=== PATIENT | female | born 1935 | race Caucasian/White ===

== ENCOUNTER 2016-12-04 12:42 | Emergency (ER) | payer BC ==
[~2016-12-04] VITALS: Ht 152.4 cm; Wt 60.2 kg
[2016-12-04 12:49] VITALS: TEMP 36.7; Ht 152.4 cm; Wt 60.2 kg
[2016-12-04 12:55] VITALS: O2SAT 94
[2016-12-04] MEDS ORDERED: LISINOPRIL 5 MG TAB PO ONE (13:15)
--- NOTE | 2016-12-04 13:17 | EMERGENCY ROOM VISIT NOTE ---
History Report prepared by Stuart: Estefani Rojas Under the Supervision of: Dr. Garrett Shaw M.D. First contact with patient: 12:57 Chief Complaint: HYPERTENSION Stated Complaint: BP ELEVATED, PT HAS ANEURYSMS History of Present Illness The patient is a 81 year old female who presents to the Emergency Room with complaints of constant hypertension beginning [employer]. The patient had a headache earlier today and went to her PCP's office. She was evaluated by a PA-C at the office and found to be hypertensive. She was sent to the ED for further evaluation. The patient takes lisinopril for her hypertension and has been taking it as prescribed. She was also taking Amlodipine, but was taken off it because she was having multiple falls. Per daughter, the patient has been feeling unwell for the past couple of days. She has been weaker and more fatigued than usual. She states that the patient is "just not acting herself." The patient does not currently have any pain or any other complaints. Source of History: patient, family (daughter) Onset: [employer] Position: other (global) Quality: other (hypertension) Timing: constant Associated Symptoms: + headache, + fatigue, + weakness Note: The patient denies any pain. Review of Systems All systems have been listed, reviewed, and are negative other than those previously mentioned. Please see Additional Medical History Sheet. Past Medical & Surgical Medical Problems: (1) Diabetes mellitus (2) Hypertension Family History Diabetes mellitus Heart disease Hypertension Social History Smoking Status: Never Smoker Smokeless Tobacco Use: No Alcohol Use: none Housing Status: lives with family Occupation Status: unemployed Current/Historical Medications Scheduled Atorvastatin Calcium (Lipitor), 80 MG PO HS Calcium Carbonate-Vitamin D (Caltrate 600+D), 1 TAB PO QAM Citalopram Hydrobromide (Celexa), 10 MG PO QAM Clopidogrel (Plavix), 75 MG PO QAM Cyanocobalamin (Vitamin B-12), 1,000 MCG PO QAM Gabapentin (Neurontin), 200 MG PO HS Iron-Vitamin C (Vitron-C), 1 TAB PO HS Liraglutide (Victoza), 0.6 UNITS SQ HS Lisinopril (Zestril), 5 MG PO QAM Lisinopril (Prinivil), 2.5 MG PO QD Magnesium Oxide (Mag-Ox), 400 MG PO HS Oxybutynin Chloride Er (Ditropan Xl), 10 MG PO HS Allergies Coded Allergies: No Known Allergies (Verified , 12/04/16) Uncoded Allergies: NKA (Allergy, Unknown, 07/21/02) NKFA (Allergy, Unknown, 07/21/02) Physical Exam Vital Signs Date Time Temp Pulse Resp B/P (MAP) Pulse Ox O2 Delivery O2 Flow Rate FiO2 12/04/16 14:52 73 22 169/89 93 Room Air 12/04/16 14:06 66 18 164/61 94 Room Air 12/04/16 13:08 70 12/04/16 12:55 94 Room Air 12/04/16 12:49 36.7 73 18 198/78 100 Room Air Physical Exam GENERAL: Patient awake, alert, oriented x 3. Patient follows commands. Patient does not appear toxic. Patient is adequately hydrated and well- nourished. SKIN: No erythema, pallor, cyanosis or rash HEENT: Normal head, pupils equal, reactive to light and accommodation. Ears normal. Oral cavity and posterior pharynx appear normal. Dentures upper and lower. Neck: Without adenopathy, no neck vein distention. LUNGS: Clear to auscultation. No wheezes, no rales, no rhonchi. HEART: No murmurs. No gallops. No rubs CHEST: Midline sternotomy scar. ABDOMEN: No masses, no rebound, no hepatomegaly or splenomegaly. EXTREMITIES: Fistula in left arm. Scar medial aspect of left leg. No signs of trauma. No pedal or pretibial edema. No calf or thigh tenderness. NEUROLOGIC: Cranial nerves II-XII within normal limits. No gross motor sensory function deficits. Medical Decision & Procedures ER Provider Diagnostic Interpretation: Radiology results as stated below per my review and radiologist interpretation: CHEST 2 VIEWS ROUTINE HISTORY: Hypertension. Short of breath. COMPARISON: None. FINDINGS: The heart is mildly enlarged. Bibasilar interstitial thickening, left greater and right. No pleural effusions. No pneumothorax. Partially visualized 4 cm calcified abdominal aortic aneurysm. This is not significantly changed compared to the 2010 ultrasound. The upper lung zones remain clear. There are poststernotomy changes. IMPRESSION: 1. Mild cardiomegaly. 2. Left greater than right bibasilar interstitial thickening. This may be chronic. An atypical pneumonitis could also a similar appearance but is considered less likely. 3. No significant change in the 4 cm calcified abdominal aortic aneurysm. Electronically signed by: Celso Cramer M.D. 12/04/2016 2:34 PM Dictated Date/Time: 12/04/2016 2:31 PM Laboratory Results 12/04/16 13:50 12/04/16 13:50 Test 12/04/16 13:50 12/04/16 14:10 Red Blood Count 3.38 M/uL (4.2-5.4) Mean Corpuscular Volume 96.2 fL (80-100) Mean Corpuscular Hemoglobin 31.1 pg (25-34) Mean Corpuscular Hemoglobin Concent 32.3 g/dl (32-36) RDW Standard Deviation 50.4 fL (36.4-46.3) RDW Coefficient of Variation 14.4 % (11.5-14.5) Mean Platelet Volume 10.0 fL (7.4-10.4) Prothrombin Time 10.7 SECONDS (9.0-12.0) Prothromb Time International Ratio 1.0 (0.9-1.1) Activated Partial Thromboplast Time 21.5 SECONDS (21.0-31.0) Partial Thromboplastin Ratio 0.8 Anion Gap 7.0 mmol/L (3-11) Est Creatinine Clear Calc Drug Dose 17.9 ml/min Estimated GFR () 26.5 Estimated GFR (Non- 22.8 BUN/Creatinine Ratio 15.6 (10-20) Calcium Level 9.9 mg/dl (8.5-10.1) Total Bilirubin 0.5 mg/dl (0.2-1) Aspartate Amino Transf (AST/SGOT) 12 U/L (15-37) Alanine Aminotransferase (ALT/SGPT) 18 U/L (12-78) Alkaline Phosphatase 38 U/L (45-117) Troponin I < 0.015 ng/ml (0-0.045) Total Protein 7.1 gm/dl (6.4-8.2) Albumin 3.7 gm/dl (3.4-5.0) Globulin 3.4 gm/dl (2.5-4.0) Albumin/Globulin Ratio 1.1 (0.9-2) Thyroid Stimulating Hormone (TSH) 3.670 uIu/ml (0.300-4.500) Urine Color YELLOW Urine Appearance CLEAR (CLEAR) Urine pH 7.5 (4.5-7.5) Urine Specific [place] 1.015 (1.000-1.030) Urine Protein NEG (NEG) Urine Glucose (UA) NEG (NEG) Urine Ketones NEG (NEG) Urine Occult Blood NEG (NEG) Urine Nitrite NEG (NEG) Urine Bilirubin NEG (NEG) Urine Urobilinogen NEG (NEG) Urine Leukocyte Esterase NEG (NEG) Laboratory results as stated above per my review. Medications Administered Medications (Trade) Dose Ordered Sig/Osmany Route Start Time Stop Time Status Last Admin Dose Admin Lisinopril (Zestril Tab) 5 mg NOW ONCE PO 12/04/16 13:15 12/04/16 13:16 DC 12/04/16 13:59 5 MG ECG Indication: weakness Rate (beats per minute): 66 Rhythm: normal sinus Findings: PVC (occasional), no acute ischemic change, other (normal axis) ED Course 1257: Past medical records reviewed. The patient was evaluated in room B12B. A complete history and physical examination was performed. 1315: Lisinopril 5 mg PO 1452: I reassessed the patient at this time. She is feeling better and resting comfortably. I discussed the results and treatment plan with the patient and her daughter. I answered all pertaining questions that they had. They expressed understanding and verbalized agreement. The patient will be discharged home. Medical Decision Differential diagnoses includes hypertensive emergency/urgency, diabetes out of control, UTI, pneumonia, viremia, metabolic disorder. Multiple labs, EKG and imaging were obtained. Please see above. The patient has cardiomegaly and a known aneurysm. I do not believe these findings are new. Blood pressure was treated with an additional 5 mg of lisinopril. Blood pressure was reevaluated multiple times and did come slowly down. The patient is mildly anemic. The patient has a history of chronic kidney disease. BUN/ creatinine are elevated. Electrolytes are within normal range. I do not believe the patient requires admission at this time. I will ask the patient to take an additional 2.5 mg of lisinopril daily. Medication Reconciliation: I attest that I have personally reviewed the patient' s current medication list. Blood Pressure Screening: Patient was found to have an elevated blood pressure and was referred to their primary doctor for recheck and further treatment. Impression Primary Impression: Hypertension Additional Impressions: Chronic kidney disease Anemia Scribe Attestation The scribe's documentation has been prepared under my direction and personally reviewed by me in its entirety. I confirm that the note above accurately reflects all work, treatment, procedures, and medical decision making performed by me. Departure Information Dispostion Home / Self-Care Prescriptions Lisinopril (Prinivil) 5 Mg Tab 2.5 MG PO QD, #30 TAB Prov: Garrett Shaw M.D. 12/04/16 Referrals Germania Rush M.D. (PCP) Forms HOME CARE DOCUMENTATION FORM, IMPORTANT VISIT INFORMATION, WORK / SCHOOL INSTRUCTIONS Patient Instructions My [facility] Additional Instructions Continue all of your current medications as prescribed plus an additional 2.5 mg of lisinopril daily. Follow-up with your family doctor within the next 7 days for blood pressure reevaluation. Problem Qualifiers Primary Impression: Hypertension Hypertension type: unspecified secondary hypertension Qualified Codes: I15.9 - Secondary hypertension, unspecified Additional Impressions: Chronic kidney disease Chronic kidney disease stage: unspecified stage Qualified Codes: N18.9 - Chronic kidney disease, unspecified Anemia Anemia type: unspecified type Qualified Codes: D64.9 - Anemia, unspecified
[2016-12-04] MEDS ORDERED: FERRTAB18 PO (13:29)
[2016-12-04] MEDS ORDERED: CYAN10005 PO (13:29)
[2016-12-04] MEDS ORDERED: CALC1CHW PO (13:29)
[2016-12-04] MEDS ORDERED: MAGN400T6 PO (13:29)
[2016-12-04] MEDS ORDERED: LISI-729 PO ×2 (13:48→15:00)
[2016-12-04] MEDS ORDERED: CITA10TA8 PO (13:48)
[2016-12-04] MEDS ORDERED: OXYB10TA13 PO (13:48)
[2016-12-04] MEDS ORDERED: LIRA18IN SQ (13:48)
[2016-12-04] MEDS ORDERED: GABA-112 PO (13:48)
[2016-12-04] MEDS ORDERED: ATOR80TA PO (13:54)
[2016-12-04] MEDS ORDERED: CLOP1TAB15 PO (13:54)
[2016-12-04 14:03] LABS: HEMATOCRIT 32.5 % (37-47); MEAN CELL VOLUME 96.2 fL (80-100); MEAN CORPUSCULAR HEMOGLOBIN 31.1 pg (25-34); MEAN CORPUSCULAR HGB CONC 32.3 g/dl (32-36); PLATELET COUNT 298 K/uL (130-400); RED BLOOD COUNT 3.38 M/uL (4.2-5.4); WHITE BLOOD COUNT 4.69 K/uL (4.8-10.8)
[2016-12-04 14:13] LABS: PARTIAL THROMBOPLASTIN RATIO 0.8; PROTHROMBIN TIME (PATIENT) 10.7 SECONDS (9.0-12.0)
[2016-12-04 14:22] LABS: ALT/SGPT 18 U/L (12-78); BLOOD UREA NITROGEN 31 mg/dl (7-18); BUN/CREATININE RATIO 15.6 (10-20); CALCIUM 9.9 mg/dl (8.5-10.1); CARBON DIOXIDE 25 mmol/L (21-32); CHLORIDE 109 mmol/L (98-107); GLUCOSE 90 mg/dl (70-99); POTASSIUM 4.5 mmol/L (3.5-5.1); SODIUM 141 mmol/L (136-145)
[2016-12-04 14:22] LABS: URINE APPEARANCE CLEAR (CLEAR); URINE BILIRUBIN NEG (NEG); URINE COLOR YELLOW; URINE NITRITE NEG (NEG); URINE PH 7.5 (4.5-7.5); URINE SPECIFIC GRAVITY 1.015 (1.000-1.030); UROBILINOGEN NEG (NEG); ZZURINE CULT IF INDIC CATH NO
[2016-12-04 14:24] LABS: MANUAL MICROSCOPIC REQUIRED? NO; REVIEW REQ? NO
[2016-12-04 14:33] LABS: ALB/GLOB RATIO 1.1 (0.9-2); ALKALINE PHOSPHATASE 38 U/L (45-117); AST/SGOT 12 U/L (15-37)
--- NOTE | 2016-12-04 14:36 | DIAGNOSTIC IMAGING REPORT ---
CHEST 2 VIEWS ROUTINE HISTORY: Hypertension. Short of breath. COMPARISON: None. FINDINGS: The heart is mildly enlarged. Bibasilar interstitial thickening, left greater and right. No pleural effusions. No pneumothorax. Partially visualized 4 cm calcified abdominal aortic aneurysm. This is not significantly changed compared to the 2010 ultrasound. The upper lung zones remain clear. There are poststernotomy changes. IMPRESSION: 1. Mild cardiomegaly. 2. Left greater than right bibasilar interstitial thickening. This may be chronic. An atypical pneumonitis could also a similar appearance but is considered less likely. 3. No significant change in the 4 cm calcified abdominal aortic aneurysm. Electronically signed by: Celso Cramer M.D. 12/04/2016 2:34 PM Dictated Date/Time: 12/04/2016 2:31 PM
[2016-12-04 15:20] VITALS: BP 178/93; PULSE 67; O2SAT 94
== END 2016-12-04 15:26 | disposition home or self-care (01) ==
LOC: C.EDB 12:43
DX: I10 Essential (primary) hypertension (principal); N18.9 Chronic kidney disease, unspecified; D64.9 Anemia, unspecified; E11.9 Type 2 diabetes mellitus without complications; Z83.3 Family history of diabetes mellitus; Z82.49 Family history of ischemic heart disease and other diseases of the circulatory system